=== PATIENT | female | born 1980 | race Caucasian/White ===

== ENCOUNTER 2016-12-20 10:37 | Emergency (ER) ==
[2016-12-20 10:44] VITALS: BP 119/71; TEMP 97; BMI 23.1
[2016-12-20 11:15] LABS: BILIRUBIN,URINE Negative (NEGATIVE); KETONES,URINE Negative (NEGATIVE); LEUKOCYTE ESTERASE ,URINE Negative (NEGATIVE); NITRITE,URINE Negative (NEGATIVE); PROTEIN,URINE Negative (NEGATIVE); URINE, BLOOD Negative (NEGATIVE)
[2016-12-20 11:24] LABS: BASOPHILS # (AUTO) 0.1 K/uL (0-0.2); BASOPHILS % (AUTO) 0.8 % (0.0-3.0); EOSINOPHILS # (AUTO) 0.1 K/ul (0.0-0.7); EOSINOPHILS % (AUTO) 1.4 % (0.0-7.0); HEMATOCRIT 38.1 % (37.0-47.0); HEMOGLOBIN 13.3 g/dl (12.0-16.0); IMMATURE GRANULOCYTE % (AUTO) 0.2 % (0.0-5.0); LYMPHOCYTES # (AUTO) 1.3 K/uL (0.60-3.4); LYMPHOCYTES % (AUTO) 20.3 (10.0-50.0); MEAN CORPUSCULAR HEMOGLOBIN 32.8 pg (27.0-31.0); MEAN CORPUSCULAR HGB CONC 34.9 (31.8-35.4); MEAN CORPUSCULAR VOLUME 93.8 fl (81.0-99.0); MONOCYTES # (AUTO) 0.5 K/uL (0.4-2.0); MONOCYTES % (AUTO) 7.8 (0-10); NEUTROPHILS # (AUTO) 4.4 K/ul (2.0-6.9); NEUTROPHILS % (AUTO) 69.5; PLATELET COUNT 241 10^3/uL (140-440); RED BLOOD COUNT 4.06 10^6/ul (4.20-5.40); WHITE BLOOD COUNT 6.27 K/ul (4.6-10.2)
[2016-12-20 11:30] LABS: ADD URINE MICROSCOPIC NO
[2016-12-20 11:40] LABS: URINE PREGNANCY INTERNAL QC INTERNAL QC VALID
[2016-12-20 11:45] LABS: ALBUMIN 3.7 g/dL (3.4-5.0); ALBUMIN/GLOBULIN RATIO 1.28; ANION GAP 9.9; BILIRUBIN,TOTAL 0.64 mg/dL (0.00-1.20); CALCIUM 9.3 mg/dL (8.2-10.2); CREATININE 0.7 mg/dL (0.60-1.30); POTASSIUM 3.9 mmol/L (3.5-5.10); TOTAL PROTEIN 6.6 g/dL (6.4-8.2)
--- NOTE | 2016-12-20 12:35 | US ---
EXAM: PELVIC ULTRASOUND COMPLETE HISTORY: Left lower quadrant pain FINDINGS: Ultrasound pelvis transvaginal. Transvaginal approach imaging was performed for improved resolution and anatomic definition. The uterus measured 9.3 x 4.9 x 5.6 centimeters. Myometrium was unremarkable. Uterine orientation appeared retroflexed. Endometrial stripe was symmetric and the endometrial thickness was slightly o nai upper limit normal at 1.1 cm. The right ovary measured 3.5 x 2.2 x 1.9 cm and the left ovary 3.8 x 1.9 x 2.3 cm. Ovaries revealed multiple follicles or small cysts with adequate blood flow to the organs. One of the cystic masses on the right ovary measuring 1.3 x 1.8 x 1.2 cm had internal echogenicity and trabeculation possibl y representing a hemorrhagic or involuting cyst. This can be followed by ultrasound. No ascites. IMPRESSION: 1. Multiple small cystic masses on the ovaries one of which may be complex as described. Follow-u p ultrasound can be considered. 2. Mildly thickened endometrial stripe at 1.1 cm.
--- NOTE | 2016-12-20 12:43 | ED.PDOC ---
General ED Provider: Dr. MANUEL TREJO Chief Complaint: Abdominal Pain Stated Complaint: ABDOMINAL PAIN Time Seen by Physician: 10:38 (THIS IS A CHRONIC ISSUE WORSE PAST 2 DAYS) Mode of Arrival: Walk-In Information Source: Patient Exam Limitations: No limitations Primary Care Provider: ISHA HUDSON Nursing and Triage Documentation Reviewed and Agree: Yes GI Complaint Exam - Abdominal Pain Complaint/Exam Onset: Gradual Duration: WEEKS Symptoms Are: Resolved Timing: Intermittent Initial Severity: Moderate Current Severity: None Location of Pain: LLQ Character: Reports: Dull, Aching Aggravating: Reports: None Alleviating: Reports: None Associated Signs and Symptoms: Denies: Diaphoresis, Fever, Cough, Chest pain, Dizziness, Back pain, Constipation, Blood in stool, Dysuria, Urinary frequency, Decreased urine output, Decreased appetite, Vaginal bleeding, Vaginal discharge , Nausea, Vomiting, Diarrhea, Sore throat, Decreased activity Related History: Reports: Similar episode AAA Risk Factors: Reports: None Cardiac Risk Factors: Reports: None Ectopic Risk Factors: Reports: Maternal age >30 Ovarian Torsion Risk Factors: Reports: Reproductive age, Ovarian cysts Surgical Obstruction Risk Factors: Reports: None Related Surgical History: Reports: None Patient Rh Status: Unknown Review of Systems - Review Of Systems Constitutional: Reports: No symptoms Eyes: Reports: No symptoms Ears, Nose, Mouth, Throat: Reports: No symptoms Respiratory: Reports: No symptoms Cardiac: Reports: No symptoms GI: Reports: Abdominal pain : Reports: No symptoms Musculoskeletal: Reports: No symptoms Skin: Reports: No symptoms Neurological: Reports: No symptoms Endocrine: Reports: No symptoms Hematologic/Lymphatic: Reports: No symptoms All Other Systems: Reviewed and Negative Past Medical History - Past Medical History Endocrine: Reports: None Cardiovascular: Reports: None Respiratory: Reports: None Hematological: Reports: None Gastrointestinal: Reports: None Genitourinary: Reports: None Neuro/Psych: Reports: None Musculoskeletal: Reports: None Cancer: Reports: None Last Menstrual Period: last week - Surgical History General Surgical History: Reports: Other - Family History Family History: Reports: Unknown - Social History Smoking Status: Current every day smoker Hx Substance Use: No Alcohol Screening: None Physical Exam - Physical Exam Appearance: Well-appearing, No pain distress, Well-nourished Eyes: SAROJ, EOMI, Conjunctiva clear ENT: Ears normal, Nose normal, Oropharynx normal Respiratory: Airway patent, Breath sounds clear, Breath sounds equal, Respirations nonlabored Cardiovascular: RRR, Pulses normal, No rub, No murmur GI/: Soft, Nontender, No masses, Bowel sounds normal, No Organomegaly Musculoskeletal: Normal strength, ROM intact, No edema, No calf tenderness Skin: Warm, Dry, Normal color Neurological: Sensation intact, Motor intact, Reflexes intact, Cranial nerves intact, Alert, Oriented Psychiatric: Affect appropriate, Mood appropriate Interpretation - Radiology Interpretation Radiology Interpretation By: Radiologist Radiology Results: Positive (OVARIAN CYSTS) Critical Care Note - Critical Care Note Total Time (mins): 0 Course - Course Hematology/Chemistry: 12/20/16 11:18 12/20/16 11:18 Orders, Labs, Meds: Lab Review 12/20/16 12/20/16 10:55 11:18 WBC 6.27 RBC 4.06 L Hgb 13.3 Hct 38.1 MCV 93.8 MCH 32.8 H MCHC 34.9 RDW Coeff of Adan 11.5 L Plt Count 241 Immature Gran % (Auto) 0.2 Neut % (Auto) 69.5 Lymph % (Auto) 20.3 [place] % (Auto) 7.8 Eos % (Auto) 1.4 Baso % (Auto) 0.8 Immature Gran # (Auto) 0.0 Neut # 4.4 Lymph # 1.3 [place] # 0.5 Eos # 0.1 Baso # 0.1 Sodium 139 Potassium 3.9 Chloride 108 H Carbon Dioxide 25 Anion Gap 9.9 BUN 7 Creatinine 0.70 Estimated GFR (MDRD) 94.00 BUN/Creatinine Ratio 10.00 Glucose 88 Calcium 9.3 Total Bilirubin 0.64 AST 15 ALT 13 Alkaline Phosphatase 32 L Total Protein 6.6 Albumin 3.7 Globulin 2.9 Albumin/Globulin Ratio 1.28 Amylase 53 Lipase 33 Urine Color Yellow Urine Clarity Clear Urine pH 7.0 Ur Specific [place] 1.020 Urine Protein Negative Urine Glucose (UA) Negative Urine Ketones Negative Urine Blood Negative Urine Nitrite Negative Urine Bilirubin Negative Urine Urobilinogen 0.2 Ur Leukocyte Esterase Negative Urine Test Negative Orders Category Date Time Status AMYLASE Stat LAB 12/20/16 11:18 Completed CBC W/ AUTO DIFF Stat LAB 12/20/16 11:18 Completed COMPREHENSIVE METABOLIC PANEL Stat LAB 12/20/16 11:18 Completed LIPASE Stat LAB 12/20/16 11:18 Completed URINALYSIS C & S IF INDICATED Stat LAB 12/20/16 10:55 Completed URINE Stat LAB 12/20/16 10:[address] ABDOMEN/PELVIS WO CONTRAST Stat RADS 12/20/16 11:04 Taken ULTRASOUND PELVIS HIRSCH VAGINAL/NONOB [U/S PELVIS HIRSCH RADS 12/20/16 11:17 Completed VAGINAL/NON OB] Stat Vital Signs: Temp Pulse Resp BP Pulse Ox 12/20/16 10:38 97 F L 75 16 119/71 98 Departure - Departure Time of Disposition: 12:43 (SEEN WITH SAMSON PENG AT ALL TIMES ) Disposition: HOME SELF-CARE Discharge Problem: Abdominal pain Instructions: Abdominal Pain (ED) Condition: Good Pt referred to PMD for follow-up: No Additional Instructions: Please call your Family Physician as soon as possible to schedule a follow-up appointment. you have cysts on your ovary that must be examined by a hairspring cutter doctor please see massac clibic failure to do so may lead to ovary cancer, , please see them NIC Allergies/Adverse Reactions: Allergies No Known Allergies Allergy (Verified 12/20/16 10:47) Home Medications: Ambulatory Orders 1 [No Reported Medications] 02/13/16 Disposition Discussed With: Patient
--- NOTE | 2016-12-20 14:37 | CT ---
EXAM: CT of the abdomen pelvis without contrast History: Left lower quadrant abdominal pain. Comparison: Pelvic ultrasound 12/20/2016, CT abdomen pelvis 02/13/2016 Technique: Multiplanar CT images through the abdomen pelvis were obtained without the administratio n of IV contrast Findings: Subsegmental atelectasis again seen within the right middle lobe. No acute osseous abnorm alities. The visualized appendix is not dilated or inflamed. No renal stones and no hydronephrosis. Calcifi ed granulomas seen within the spleen. Possible cholelithiasis. No focal liver lesions. No [place]ip[place] creatic inflammation. Adrenal glands are unremarkable. No bowel obstruction. No bladder wall thic kening. Adnexal structures appear appropriate for patient's age. No free air. There is fluid seen within the right side of the colon. Most of the colon is not well distended. Fluid seen within th e stomach. Nondilated fluid filled loops of small bowel. Impression: 1. Mild gastroenteritis. No bowel obstruction. 2. Possible cholelithiasis.
== END 2016-12-20 12:57 | disposition home or self-care (01) ==
LOC: ED 10:37
DX: N83.202 Unspecified ovarian cyst, left side (principal); N83.201 Unspecified ovarian cyst, right side; F17.210 Nicotine dependence, cigarettes, uncomplicated
CPT/HCPCS: 36415; 80053; 81001; 81025; 82150; 83690; 85025; 99283

== ENCOUNTER 2016-12-22 07:29 | Outpatient (CLI) ==
--- NOTE | 2016-12-22 08:31 | US ---
EXAM: Right upper quadrant abdominal ultrasound. History: Abdominal pain. Comparison: CT abdomen pelvis 12/20/2016 Technique: Multiple sonographic images through the abdomen were obtained. Color duplex Doppler was used to interrogate vascular flow. Findings: The liver is not enlarged. No focal liver lesions identified sonographically. The visualized pancr eas demonstrates no gross abnormality. No abdominal ascites. There is antegrade flow within the ma in portal vein. Limited visualization of the right kidney demonstrates no evidence for hydronephros is. No gallbladder wall thickening. 3 mm gallbladder wall polyp versus nonshadowing gallstone. Co mmon bile duct measures 0.3 cm in caliber. Impression: 3 mm gallbladder wall polyp versus nonshadowing gallstone. There is no gallbladder wal l thickening.
== END 2016-12-22 07:30 | disposition home or self-care (01) ==
LOC: RAD 07:29
PROVIDERS: ATTEND Family Medicine
DX: R10.9 Unspecified abdominal pain (principal); K81.9 Cholecystitis, unspecified

== ENCOUNTER 2017-01-12 08:54 | Outpatient (CLI) ==
[2017-01-12 09:41] LABS: BASOPHILS # (AUTO) 0.1 K/uL (0-0.2); BASOPHILS % (AUTO) 1.3 % (0.0-3.0); EOSINOPHILS # (AUTO) 0.2 K/ul (0.0-0.7); EOSINOPHILS % (AUTO) 4.5 % (0.0-7.0); HEMATOCRIT 39.6 % (37.0-47.0); HEMOGLOBIN 13.4 g/dl (12.0-16.0); IMMATURE GRANULOCYTE % (AUTO) 0.2 % (0.0-5.0); LYMPHOCYTES % (AUTO) 36.4 (10.0-50.0); MEAN CORPUSCULAR HEMOGLOBIN 32.4 pg (27.0-31.0); MEAN CORPUSCULAR HGB CONC 33.8 (31.8-35.4); MEAN CORPUSCULAR VOLUME 95.7 fl (81.0-99.0); MONOCYTES # (AUTO) 0.3 K/uL (0.4-2.0); MONOCYTES % (AUTO) 5.2 (0-10); NEUTROPHILS # (AUTO) 2.8 K/ul (2.0-6.9); NEUTROPHILS % (AUTO) 52.4; PLATELET COUNT 269 10^3/uL (140-440); RED BLOOD COUNT 4.14 10^6/ul (4.20-5.40); WHITE BLOOD COUNT 5.39 K/ul (4.6-10.2)
[2017-01-12 09:48] LABS: BILIRUBIN,URINE Negative (NEGATIVE); KETONES,URINE Negative (NEGATIVE); LEUKOCYTE ESTERASE ,URINE 1+ (NEGATIVE); NITRITE,URINE Negative (NEGATIVE); PROTEIN,URINE Negative (NEGATIVE); URINE, BLOOD 1+ (NEGATIVE)
[2017-01-12 09:51] LABS: ADD URINE MICROSCOPIC YES
[2017-01-12 09:58] LABS: ALBUMIN/GLOBULIN RATIO 1.38; ANION GAP 11.9; BILIRUBIN,TOTAL 0.95 mg/dL (0.00-1.20); BUN/CREATININE RATIO 8.23; CALCIUM 9.1 mg/dL (8.2-10.2); CREATININE 0.85 mg/dL (0.60-1.30); POTASSIUM 3.9 mmol/L (3.5-5.10); TOTAL PROTEIN 6.9 g/dL (6.4-8.2)
--- NOTE | 2017-01-12 13:14 | NM ---
EXAM: Hepatobiliary imaging HISTORY: Right upper quadrant pain COMPARISON: Limited abdominal ultrasound on 12/22/2016 showed a 3 mm gallbladder wall polyp. TECHNIQUE: Patient was injected 4.9 mCi of technetium 99m Choletec intravenously. Multiple anterior scintigraphic images of the right upper quadrant region of the abdomen were obtained up to 1 hour i nterval. Patient was infused 1.3 mcg of cholecystokinin intravenously and gallbladder ejection frac tion was calculated. FINDINGS: There is normal visualization of liver, gallbladder, bile duct and small bowel loops. Gal lbladder ejection fraction is 84%. IMPRESSION: Normal study
== END 2017-01-12 08:55 | disposition home or self-care (01) ==
LOC: RAD 08:54
PROVIDERS: ATTEND Family Medicine
DX: R10.11 Right upper quadrant pain (principal); R10.30 Lower abdominal pain, unspecified; R11.2 Nausea with vomiting, unspecified
CPT/HCPCS: 36415; 80053; 81001; 82150; 82977; 83690; 85025

== ENCOUNTER 2017-04-12 12:18 | Outpatient (CLI) ==
--- NOTE | 2017-04-13 07:09 | MRI ---
EXAM: MRI lumbar spine without IV contrast. DATE: 12 April 2017. HISTORY: Low back pain. Lumbar scoliosis. TECHNIQUE: Sagittal and axial T1W and T2W sequences of the lumbar spine along with sagittal IR and c oronal T2W sequences were obtained using 1.2 Betzy magnet. No IV contrast. COMPARISON: MRI L-spine 12/31/2014. FINDINGS: There are five [id number] lumbar vertebra. Minor rightward curvature of the lumbar s pine is observed. No acute T-spine fracture, subluxation, osseous malignancy, or pars interarticular is defect is identified. Lumbar vertebrae normal in height. Chronic Schmorl's nodes identified T11, T12, L1, and L2. Small osteophytes are noted within the lower thoracic and upper lumbar spine. The re is disc desiccation at T11-12 through L2-3. Mild disc space narrowing is detected at T11-12, T12- L1, and L1-2. Minor disc space narrowing is revealed at L5-S1. Remaining intervertebral discs are n ormal in height. Bone marrow signal is overall normal. No sacral fracture or stress reaction is evid ent. The SI joints are unremarkable. Conus medullaris terminates at T12-L1. The visible spinal cor d is normal. No retroperitoneal lymphadenopathy, paraspinal mass, or aortic aneurysm is identified. Paraspinal mu sculature is symmetric bilaterally. Visible portions of the liver, spleen, adrenal glands kidneys re veal no abnormality. A T2W bright, 2.3 x 3.2 cm lesion in the right adnexa is not present on previou s MRI. Visible portion of the uterus reveals no neoplasm or significantly dilated endometrial canal. Segmental analysis: T11-12: Sagittal images reveal broad posterior disc bulge (4 mm AP) flattening the cord anteriorly a nd causing moderate central canal stenosis. Each foramen is patent. T12-L1: Posterior midline disc extrusion (5 mm AP x 15 mm transverse x 8.4 mm behind the L1 superior endplate) causes mild central canal stenosis. Each foramen is patent. L1-2: Broad posterior disc bulge (4.6 mm AP) causes mild central canal stenosis. Each foramen is pa tent. L2-3: Broad posterior disc bulge (3.4 mm AP) causes triangulation of the canal. A 2.5 x 4 x 4 mm fo cus in the left paracentral location behind the inferior aspect of the L2 vertebral body may represen t tiny disc extrusion. Each foramen is patent. L3-4: Broad posterior disc bulge (2.8 mm AP) mild facet arthropathy, and mild ligamentum flavum hype rtrophy cause triangulation of the canal and minimal bilateral foraminal encroachment. L4-5: Minimal concentric disc bulge and minor facet arthropathy cause minor/mild bilateral foraminal stenoses. No central canal stenosis. L5-S1: Minimal posterior disc bulge and minor facet arthropathy do not cause central stenosis or for aminal stenosis. IMPRESSIONS: 1. Thoracolumbar mild spondylosis, moderate facet arthropathy, and multilevel DDD - - similar to Dec, except for new disc bulges at L2-3 and L3-4. 2. Multilevel central canal stenoses (T11-12: Moderate. T12-L1: Mild. L1-2: Mild. L2-3: Triangula tion of canal. L3-4: Triangulation of canal). 3. L3-4 and L4-5 foraminal stenoses (minor/mild). 4. T - L-spine small, chronic Schmorl's nodes. 5. Right adnexal lesion - likely ovarian cyst. Recommend pelvic US.
== END 2017-04-12 12:19 | disposition home or self-care (01) ==
LOC: RAD 12:18
PROVIDERS: ATTEND Family Medicine
DX: M54.5 Low back pain (principal); M47.817 Spondylosis without myelopathy or radiculopathy, lumbosacral region; M41.9 Scoliosis, unspecified

== ENCOUNTER 2017-04-20 12:54 | Outpatient (CLI) ==
--- NOTE | 2017-04-20 14:04 | US ---
EXAM: Transvaginal pelvic ultrasound. History: Right ovarian Technique: Multiple sonographic images through the pelvis were obtained. Color duplex Doppler was u sed to interrogate vascular flow. Findings: The uterus measures 7.9 cm x 5.5 cm x 5.4 cm. Endometrium measures 1.3 cm in thickness. Small amoun t of fluid in the pelvis. Both ovaries are normal in size. 0.7 cm dominant follicle within the right ovary. Blood flow is doc umented within each ovary. 0.8 cm dominant follicle within the left ovary. Impression: A small amount of pelvic free fluid. Examination is otherwise unremarkable.
== END 2017-04-20 12:55 | disposition home or self-care (01) ==
LOC: RAD 12:54
PROVIDERS: ATTEND Family Medicine
DX: N83.9 Noninflammatory disorder of ovary, fallopian tube and broad ligament, unspecified (principal)

== ENCOUNTER 2018-01-14 07:56 | Outpatient (CLI) ==
--- NOTE | 2018-01-14 09:04 | US ---
EXAM: Ultrasound abdomen complete. HISTORY: Right upper quadrant pain COMPARISON: 12/22/2016 TECHNIQUE: Abdominal, real time with image documentation: Complete. FINDINGS: Liver: Normal. No intrahepatic biliary dilatation. Portal venous flow is normal direction. Gallbladder: A 0.4 cm echogenic, nonmobile, nonshadowing structures seen along the posterior ga llbladder wall near the fundus, which is stable. No wall thickening identified. Common bile duct: 0.5 cm. Pancreas: Visualized portions are unremarkable. Spleen: Normal, length 9.7 cm. Right kidney: 10.8 cm length. No hydronephrosis. Left kidney: 10.3 cm in length. No hydronephrosis. Aorta: Visualized portions are normal in caliber. IVC: Visualized portions are normal in caliber. IMPRESSION: 1. No acute sonographic abnormality of the abdomen. 2. Stables small polyp or adherent stone in the gallbladder wall.
== END 2018-01-14 07:57 | disposition home or self-care (01) ==
LOC: RAD 07:56
PROVIDERS: ATTEND Family Medicine
DX: R10.11 Right upper quadrant pain (principal); R10.2 Pelvic and perineal pain

== ENCOUNTER 2018-09-27 14:46 | Outpatient (CLI) | END 2018-09-27 14:47 | disposition home or self-care (01) | LOC: LAB 14:46 | PROVIDERS: ATTEND Nurse Practitioner Family | DX: R63.4 Abnormal weight loss (principal); K21.9 Gastro-esophageal reflux disease without esophagitis; Z71.1 Person with feared health complaint in whom no diagnosis is made; Z91.89 Other specified personal risk factors, not elsewhere classified | CPT/HCPCS: 36415; 80053; 80061; 84443; 85025; 86592; 86705; 86803; 87340; 87389; 87800 ==

== ENCOUNTER 2019-01-11 10:38 | Emergency (ER) ==
[2019-01-11 10:47] VITALS: BP 109/79; TEMP 97.4; BMI 19.8
--- NOTE | 2019-01-11 10:57 | ED.PDOC ---
General ED Provider: Dr. ZOIE BECKWITH MD Chief Complaint: Weakness Stated Complaint: feeling weak after mowing 2 acres Time Seen by Physician: 10:49 Mode of Arrival: Walk-In Information Source: Patient Exam Limitations: No limitations [facility] Nursing and Triage Documentation Reviewed and Agree: Yes Does patient meet sepsis criteria?: No If yes, has appropriate treatment been initiated?: Yes System Inflammatory Response Syndrome: Not Applicable Sepsis Protocol: For patient's 13 years and over: Temp is 96.8 and below OR 101 and greater Pulse >90 BPM Resp >20/minute Acutely Altered Mental Status Are patient's symptoms suggestive of a new infection, such as: -Pneumonia -Skin, Soft Tissue -Endocarditis -UTI -Bone, Joint Infection -Implantable Device -Acute Abdominal Infection -Wound Infection -Meningitis -Blood Stream Catheter Infection -Unknown Review of Systems - Review Of Systems Constitutional: Reports: Weakness Eyes: Reports: No symptoms Ears, Nose, Mouth, Throat: Reports: No symptoms Respiratory: Reports: No symptoms Cardiac: Reports: No symptoms GI: Reports: No symptoms : Reports: No symptoms Musculoskeletal: Reports: No symptoms Skin: Reports: No symptoms Neurological: Reports: No symptoms Endocrine: Reports: No symptoms Hematologic/Lymphatic: Reports: No symptoms All Other Systems: Reviewed and Negative Past Medical History - Past Medical History Endocrine: Reports: None Cardiovascular: Reports: None Respiratory: Reports: None Hematological: Reports: None Gastrointestinal: Reports: None Genitourinary: Reports: None Neuro/Psych: Reports: None Musculoskeletal: Reports: None Cancer: Reports: None Last Menstrual Period: now - Surgical History General Surgical History: Reports: Other - Family History Family History: Reports: Unknown - Social History Smoking Status: Current every day smoker Hx Substance Use: No Alcohol Screening: Occasionally - Immunizations Tetanus Shot up to Date: Yes Physical Exam - Physical Exam Appearance: Thin Ill-appearing: Mild Eyes: SAROJ, EOMI, Conjunctiva clear ENT: Ears normal, Nose normal, Oropharynx normal Respiratory: Airway patent, Breath sounds clear, Breath sounds equal, Respirations nonlabored Cardiovascular: RRR, Pulses normal, No rub, No murmur GI/: Soft, Nontender, No masses, Bowel sounds normal, No Organomegaly Musculoskeletal: Normal strength, ROM intact, No edema, No calf tenderness Skin: Warm, Dry, Normal color Neurological: Sensation intact, Motor intact, Reflexes intact, Cranial nerves intact, Alert, Oriented Psychiatric: Affect appropriate, Mood appropriate Critical Care Note - Critical Care Note Total Time (mins): 0 Course - Course Hematology/Chemistry: 01/11/19 11:03 01/11/19 11:03 Orders, Labs, Meds: Lab Review 01/11/19 01/11/19 01/11/19 11:03 11:03 11:03 WBC 6.07 RBC 4.23 Hgb 13.8 Hct 41.0 MCV 96.9 MCH 32.6 H MCHC 33.7 RDW Coeff of Adan 11.6 Plt Count 276 Immature Gran % (Auto) 0.5 Neut % (Auto) 64.2 Lymph % (Auto) 25.4 [place] % (Auto) 5.3 Eos % (Auto) 3.0 Baso % (Auto) 1.6 Immature Gran # (Auto) 0.0 Neut # (Auto) 3.9 Lymph # (Auto) 1.5 [place] # (Auto) 0.3 L Eos # (Auto) 0.2 Baso # (Auto) 0.1 Sodium 141.1 Potassium 3.94 Chloride 107.8 H Carbon Dioxide 25.3 Anion Gap 11.94 BUN 11.1 Creatinine 0.70 Estimated GFR (MDRD) 93.00 BUN/Creatinine Ratio 15.85 Glucose 76.7 Calcium 8.93 Iron 113.5 Orders Category Date Time Status IV [ED IV/MEDIPORT/POWERPORT] .ONCE EMERGENCY 01/11/19 10:56 Active BMP [BASIC METABOLIC PANEL] Stat LAB 01/11/19 11:03 Completed CBC W/ AUTO DIFF Stat LAB 01/11/19 11:03 Completed IRON Stat LAB 01/11/19 11:03 Completed 0.9 % Sodium Chloride [Saline Flush] MEDS 01/11/19 10:56 Active 1 syr IVF PRN PRN Methylprednisolone Sod Succ/Pf [Solu-Medrol 125 mg] MEDS 01/11/19 11:40 Stat 125 mg IVP ONCE STA Ringers Lactated Solution [Lactated Ringers] 1,000 ml MEDS 01/11/19 10:56 Active IV BOLUS Medications Generic Name Dose Route Start Last Admin Trade Name Freq PRN Reason Stop Dose Admin Lactated Ringer's 1,000 mls @ 1,000 mls/hr 01/11/19 10:56 01/11/19 11:13 Lactated Ringers IV 01/11/19 11:55 1,000 mls/hr BOLUS STA Administration Methylprednisolone Sodium Succinate 125 mg 01/11/19 11:40 Solu-Medrol 125 Mg IVP 01/11/19 11:41 ONCE STA Sodium Chloride 1 syr 01/11/19 10:56 01/11/19 11:13 Saline Flush IVF 1 syr PRN PRN Administration To flush IV Vital Signs: Temp Pulse Resp BP Pulse Ox 01/11/19 10:39 97.4 F L 99 H 18 109/79 98 Departure - Departure Time of Disposition: 12:00 Disposition: HOME SELF-CARE Discharge Problem: Weakness Instructions: Dehydration (ED) Condition: Good Pt referred to PMD for follow-up: Yes IPMP verified?: No Allergies/Adverse Reactions: Allergies No Known Allergies Allergy (Verified 01/11/19 10:49) Home Medications: Ambulatory Orders 1 [No Reported Medications] 02/13/16 Transfer Form Completed: No Disposition Discussed With: Patient
[2019-01-11] MEDS: LACTATED RINGERS 1,000 ML IV STA (11:13)
[2019-01-11] MEDS: SOLU-MEDROL 125 MG IVP STA (11:49)
== END 2019-01-11 12:17 | disposition home or self-care (01) ==
LOC: ED 10:38
DX: R53.1 Weakness (principal); E86.0 Dehydration; F17.210 Nicotine dependence, cigarettes, uncomplicated
CPT/HCPCS: 36415; 80048; 83540; 85025; 96360; 96361; 96374; 99283